=== PATIENT | female | born 1995 | race Caucasian/White ===

== ENCOUNTER 2018-11-24 21:50 | Emergency (ER) | payer OTHER ==
[~2018-11-24] VITALS: Ht 154.9 cm; Wt 72.3 kg
[2018-11-24] MEDS ORDERED: LAMO25 PO (21:57)
[2018-11-24] MEDS ORDERED: ARIP2 PO (21:57)
[2018-11-24] MEDS ORDERED: IBUPROFEN 600 MG TABLET PO ONE (23:15)
[2018-11-24] MEDS ORDERED: HYDROCODONE/ACETAMINOPHEN 5-325 MG TABLET PO ONE (23:15)
[2018-11-24 23:30] VITALS: BP 124/78
== END 2018-11-24 23:48 | disposition home or self-care (01) ==
LOC: EMS 21:52
DX: J02.0 Streptococcal pharyngitis (principal); J45.909 Unspecified asthma, uncomplicated; F12.90 Cannabis use, unspecified, uncomplicated; F31.9 Bipolar disorder, unspecified; Z79.899 Other long term (current) drug therapy